=== PATIENT | female | born 1980 | race African-American/Black ===

== ENCOUNTER 2024-10-23 09:38 | Emergency (ER) | payer MEDICAID, OTHER ==
[~2024-10-23] VITALS: Ht 165.1 cm; Wt 73.0 kg
[2024-10-23 10:21] VITALS: PULSE 136; RESP 18; O2SAT 96
[2024-10-23] MEDS: IPRATROPIUM/ALBUTEROL 0.5-3(2.5)MG/3ML NEB HHN NR (10:21)
[2024-10-23] MEDS: LEVETIRACETAM 500MG TABLET PO NR (10:35)
[2024-10-23] MEDS: ACETAMINOPHEN 325MG TABLET PO NR (10:35)
[2024-10-23] MEDS: METHYLPREDNISOLONE SOD SUCC 125MG/2ML (ACT-O-VIAL) IV NR (10:36)
[2024-10-23 10:49] LABS: BASOPHILS % 0.8 % (0.0-2.0); DIFFERENTIAL COMMENT 0; EOSINOPHILS % 1.5 % (0.0-5.0); HEMATOCRIT. 30.2 % (36.0-48.0); HEMOGLOBIN. 9.3 g/dL (12.0-16.0); LYMPHOCYTES % 15.5 % (20.0-50.0); MEAN CORPUSCULAR HEMOGLOBIN 22.9 pg (28.0-32.0); MEAN CORPUSCULAR HGB CONC 30.8 g/dL (31.0-37.0); MEAN CORPUSCULAR VOLUME 74.5 fL (81.0-99.0); MEAN PLATELET VOLUME 8.2 fl (7.4-10.4); MONOCYTES % 4.6 % (2.0-8.0); NEUTROPHILS % 77.6 % (40.0-76.0); PLATELET 298 x1000/uL (130-400); RED BLOOD CELL COUNT 4.05 mill/uL (4.2-5.4); RED CELL DISTRIBUTION WIDTH 19.2 % (11.6-14.6); WHITE BLOOD COUNT 10.7 x1000/uL (4.5-11.0)
[2024-10-23 11:09] LABS: CHLORIDE 105 mEq/L (98-107); POTASSIUM 3.3 mEq/L (3.5-5.1); SODIUM 140 mEq/L (136-145)
[2024-10-23 11:10] LABS: CARBON DIOXIDE 25 mEq/L (21-32)
[2024-10-23 11:11] LABS: CALCIUM 9.3 mg/dL (8.7-10.4)
[2024-10-23 11:15] LABS: CREATININE 0.9 mg/dL (0.6-1.0); GLUCOSE 168 mg/dL (70-105); UREA NITROGEN BLOOD 7 mg/dL (9-23)
[2024-10-23] MEDS: POTASSIUM CHLORIDE 20MEQ TABLET SR PO NR (11:43)
[2024-10-23 11:50] LABS: LACTIC ACID 3.9 mmol/L (0.4-2.0)
[2024-10-23 12:04] LABS: PHOSPHORUS 2.1 mg/dL (2.5-4.9)
[2024-10-23 12:13] LABS: D-DIMER 0.44 mg/L FEU (<0.50); PROTHROMBIN TIME 11.3 sec (9.6-11.0)
[2024-10-23 12:21] LABS: TROPONIN I HIGH SENSITIVITY < 4 ng/L (3.0-34)
[2024-10-23] MEDS: MAGNESIUM 4 G PREMIX 100 ML IV NR (13:53)
[2024-10-23] MEDS: POTASSIUM PHOSPHATE 10 MMOL in DEXT 5% WATER 246.6667 ML IV NR (13:59)
[2024-10-23] MEDS ORDERED: ACETAMINOPHEN 325MG TABLET PO PRN (15:15)
[2024-10-23] MEDS ORDERED: MAGNESIUM/ALUMINUM HYDROXIDE/SIMETHICONE 30ML UDC PO PRN (15:15)
[2024-10-23] MEDS ORDERED: ONDANSETRON HCL 4MG/2ML INJ IV PRN (15:15)
[2024-10-23] MEDS ORDERED: ZOLPIDEM TARTRATE 5MG TABLET PO PRN (15:15)
[2024-10-23] MEDS ORDERED: GUAIFENESIN 200MG/10ML SUGAR FREE UDC PO PRN (15:15)
[2024-10-23] MEDS ORDERED: CLONIDINE 0.1MG TABLET PO PRN (15:15)
[2024-10-23] MEDS ORDERED: IPRATROPIUM/ALBUTEROL 0.5-3(2.5)MG/3ML NEB HHN SCH (16:00)
[2024-10-23] MEDS ORDERED: BUDESONIDE 0.5MG/2ML NEB HHN SCH (16:15)
[2024-10-23] MEDS: ENOXAPARIN 40MG/0.4ML SYR SUBCUT SCH (17:01)
[2024-10-23 18:19] VITALS: BP 117/55; PULSE 122; RESP 18; TEMP 36.89184; O2SAT 100
[2024-10-24] MEDS ORDERED: PREDNISONE 20MG TABLET PO SCH (09:00)
== END 2024-10-23 18:28 | disposition short-term general hospital (02) ==
LOC: ER 09:38 → EDBEDREQ 11:49 → CANBEDREQ 18:22 → ER 18:28
DX: J45.901 Unspecified asthma with (acute) exacerbation (principal); E11.9 Type 2 diabetes mellitus without complications; F31.9 Bipolar disorder, unspecified; Z20.822 Contact with and (suspected) exposure to COVID-19
CPT/HCPCS: 80048; 83605; 83735; 84100; 85025; 85379; 85610; 84484; 87804 ×2; 36415; 84145; 71046; 94640; 96368; 96365; 96372; 96375; 99285; 87426; J1650; J3475; J2919; J3490; Z7610 ×5; J7060

== ENCOUNTER 2025-03-02 10:47 | Emergency (ER) | payer OTHER ==
[~2025-03-02] VITALS: Ht 142.2 cm; Wt 81.6 kg
[2025-03-02 10:54] VITALS: O2SAT 100
[2025-03-02 12:05] LABS: BASOPHILS % 1.2 % (0.0-2.0); DIFFERENTIAL COMMENT 0; EOSINOPHILS % 2.2 % (0.0-5.0); HEMATOCRIT. 31.1 % (36.0-48.0); HEMOGLOBIN. 9.6 g/dL (12.0-16.0); LYMPHOCYTES % 35.1 % (20.0-50.0); MEAN CORPUSCULAR HEMOGLOBIN 22.7 pg (28.0-32.0); MEAN CORPUSCULAR HGB CONC 30.9 g/dL (31.0-37.0); MEAN CORPUSCULAR VOLUME 73.4 fL (81.0-99.0); MEAN PLATELET VOLUME 7.3 fl (7.4-10.4); MONOCYTES % 8.6 % (2.0-8.0); NEUTROPHILS % 52.9 % (40.0-76.0); PLATELET 393 x1000/uL (130-400); RED BLOOD CELL COUNT 4.23 mill/uL (4.2-5.4); RED CELL DISTRIBUTION WIDTH 20.6 % (11.6-14.6); WHITE BLOOD COUNT 9.1 x1000/uL (4.5-11.0)
[2025-03-02 12:26] LABS: CHLORIDE 105 mEq/L (98-107); SODIUM 139 mEq/L (136-145)
[2025-03-02 12:27] LABS: CALCIUM 9.8 mg/dL (8.7-10.4); CARBON DIOXIDE 24 mEq/L (21-32)
[2025-03-02 12:32] LABS: CREATININE 0.8 mg/dL (0.6-1.0); GLUCOSE 98 mg/dL (70-105); UREA NITROGEN BLOOD < 5 mg/dL (9-23)
[2025-03-02 12:33] LABS: ALANINE AMINOTRANSFERASE 26 IU/L (10-49); ASPARTATE AMINOTRANSFERASE 23 IU/L (<34)
[2025-03-02 12:34] LABS: ALBUMIN 4.6 g/dL (3.2-4.8); BILIRUBIN TOTAL 0.5 mg/dL (0.1-1.0); PROTEIN TOTAL 8.2 g/dL (6.0-8.3)
[2025-03-02] MEDS: METOCLOPRAMIDE HCL 10MG TABLET PO ONE (14:04)
[2025-03-02] MEDS: DIPHENHYDRAMINE 25MG CAPSULE PO ONE (14:04)
[2025-03-02] MEDS ORDERED: AMIT100T2 MT (15:01)
[2025-03-02] MEDS ORDERED: SITA25TA3 MT (15:01)
[2025-03-02] MEDS ORDERED: EMPA25TA MT (15:01)
[2025-03-02] MEDS ORDERED: SITA100T11 MT (15:02)
[2025-03-02 15:05] VITALS: BP 118/65; PULSE 95; RESP 16; TEMP 36.7; O2SAT 99
== END 2025-03-02 15:06 | disposition home or self-care (01) ==
LOC: ER 12:42
DX: R56.9 Unspecified convulsions (principal); G43.909 Migraine, unspecified, not intractable, without status migrainosus; E11.9 Type 2 diabetes mellitus without complications; J45.909 Unspecified asthma, uncomplicated; Z79.899 Other long term (current) drug therapy; Z90.49 Acquired absence of other specified parts of digestive tract; Z79.84 Long term (current) use of oral hypoglycemic drugs
CPT/HCPCS: 99283; 80053; 85025; 36415; Q0163; J8597

== ENCOUNTER 2025-10-02 16:04 | Emergency (ER) | payer OTHER ==
[~2025-10-02] VITALS: Ht 160 cm; Wt 95.0 kg
[~2025-10-02 16:04] MED LIST: AMIT100T2 MT; EMPA25TA MT; SITA100T11 MT
[2025-10-02] MEDS ORDERED: DEXAMETHASONE 1 MG/ML ORAL SYR PO ONE (17:30)
[2025-10-02] MEDS: DEXAMETHASONE 10 MG/ML VIAL PO NR (17:54)
[2025-10-02 17:58] VITALS: PULSE 103; RESP 20; O2SAT 96
[2025-10-02] MEDS: ALBUTEROL (0.083%) 2.5MG/3ML NEB HHN SCH (17:58)
[2025-10-02] MEDS: IPRATROPIUM BROMIDE (0.02%) 0.5MG/2.5ML NEB HHN SCH (17:59)
[2025-10-02 18:25] VITALS: PULSE 116; RESP 18; O2SAT 99
[2025-10-02 18:50] VITALS: PULSE 123; RESP 18; O2SAT 96
[2025-10-02 19:45] LABS: BASOPHILS % 0.8 % (0.0-2.0); EOSINOPHILS % 6.2 % (0.0-5.0); HEMATOCRIT. 33.5 % (36.0-48.0); HEMOGLOBIN. 10.4 g/dL (12.0-16.0); LYMPHOCYTES % 23.4 % (20.0-50.0); MEAN PLATELET VOLUME 7.6 fl (7.4-10.4); MONOCYTES % 5.5 % (2.0-8.0); NEUTROPHILS % 64.1 % (40.0-76.0); PLATELET 330 x1000/uL (130-400); RED BLOOD CELL COUNT 4.21 mill/uL (4.2-5.4); RED CELL DISTRIBUTION WIDTH 18.4 % (11.6-14.6)
[2025-10-02 19:55] LABS: CREATININE 0.8 mg/dL (0.6-1.0); TROPONIN I HIGH SENSITIVITY < 4 ng/L (3.0-34); UREA NITROGEN BLOOD 7 mg/dL (9-23)
[2025-10-02 19:57] LABS: ASPARTATE AMINOTRANSFERASE 26 IU/L (<34)
[2025-10-02 19:58] LABS: BILIRUBIN DIRECT < 0.1 mg/dL (<=3.0); BILIRUBIN TOTAL 0.4 mg/dL (0.1-1.0); PROTEIN TOTAL 8.1 g/dL (6.0-8.3)
[2025-10-02] MEDS: LEVETIRACETAM 500MG PREMIX 100 ML IV ONE (20:06)
[2025-10-02] MEDS ORDERED: LEVE750T83 MT (21:04)
[2025-10-02] MEDS: SODIUM CHLORIDE 0.9% 1,000 ML IV ONE (22:06)
[2025-10-02] MEDS: DIPHENHYDRAMINE 50MG/ML VIAL IV ONE (22:06)
[2025-10-02] MEDS: KETOROLAC 30MG/ML VIAL IV ONE (22:06)
[2025-10-02] MEDS: PROCHLORPERAZINE 10MG/2ML VIAL IV ONE (22:14)
[2025-10-02] MEDS: ACETAMINOPHEN 1000MG/100ML 100 ML IV ONE (23:27)
[2025-10-02] MEDS ORDERED: ACET-2708 MT (23:33)
[2025-10-02] MEDS ORDERED: IBUP-1455 MT (23:33)
[2025-10-02] MEDS ORDERED: P20 MT (23:41)
[2025-10-03 00:14] VITALS: BP 116/52; PULSE 107; RESP 13; TEMP 36.7; O2SAT 96
[2025-10-07] MEDS ORDERED: P20 MT (15:43)
[2025-10-07] MEDS ORDERED: FLUT1DIS3 INH (15:44)
[2025-10-07] MEDS ORDERED: ALBU18HF2 IH (15:44)
[2025-10-07] MEDS ORDERED: IPRA3AMP9 NEB (16:08)
== END 2025-10-03 00:31 | disposition home or self-care (01) ==
LOC: ER 16:04
DX: J45.901 Unspecified asthma with (acute) exacerbation (principal); G40.909 Epilepsy, unspecified, not intractable, without status epilepticus; R07.9 Chest pain, unspecified; E11.9 Type 2 diabetes mellitus without complications; F31.9 Bipolar disorder, unspecified; Z79.899 Other long term (current) drug therapy; Z90.49 Acquired absence of other specified parts of digestive tract
CPT/HCPCS: 80076; 80048; 82962; 85025; 84484; 36415; 71045; 94640; 93005; 96367; 96365; 96375; 99285; J1953; J1100; J1200; J1885; J0780; Z7610 ×4; J7030; 94070; 94664; J8540; J0131

== ENCOUNTER 2025-11-10 05:37 | Inpatient (IN) | payer OTHER ==
[~2025-11-10] VITALS: Ht 142.2 cm; Wt 78.5 kg
[~2025-11-10 05:37] MED LIST changes: +ACET-2708 MT; +ALBU18HF2 IH; +FLUT1DIS3 INH; +IBUP-1455 MT; +IPRA3AMP9 NEB; +LEVE750T83 MT; +P20 MT
[2025-11-10 06:45] LABS: BASOPHILS % 1.1 % (0.0-2.0); EOSINOPHILS % 3.2 % (0.0-5.0); HEMATOCRIT. 34.0 % (36.0-48.0); HEMOGLOBIN. 10.7 g/dL (12.0-16.0); LYMPHOCYTES % 27.3 % (20.0-50.0); MEAN PLATELET VOLUME 7.9 fl (7.4-10.4); MONOCYTES % 9.6 % (2.0-8.0); NEUTROPHILS % 58.8 % (40.0-76.0); PLATELET 341 x1000/uL (130-400); RED BLOOD CELL COUNT 4.28 mill/uL (4.2-5.4); RED CELL DISTRIBUTION WIDTH 18.8 % (11.6-14.6)
[2025-11-10 06:52] LABS: CREATININE 0.9 mg/dL (0.6-1.0); ETHANOL BLOOD < 10 mg/dL (<10); PROTEIN TOTAL 7.7 g/dL (6.0-8.3); UREA NITROGEN BLOOD < 5 mg/dL (9-23)
[2025-11-10 06:53] LABS: ASPARTATE AMINOTRANSFERASE 25 IU/L (<34)
[2025-11-10 06:54] LABS: BILIRUBIN DIRECT < 0.1 mg/dL (<=3.0); BILIRUBIN TOTAL 0.3 mg/dL (0.1-1.0)
[2025-11-10] MEDS: LIDOCAINE 5% PATCH TOP ONE (07:04)
[2025-11-10 07:10] LABS: HCG SCREEN NEGATIVE
[2025-11-10] MEDS: KETOROLAC 15MG/ML VIAL IM ONE (07:42)
[2025-11-10] MEDS: ACETAMINOPHEN 325MG TABLET PO ONE (07:42)
[2025-11-10 08:04] LABS: CLARITY URINE CLEAR (CLEAR); COLOR URINE YELLOW (YELLOW); GLUCOSE URINE 3+ (NEGATIVE); KETONES URINE NEGATIVE (NEGATIVE); LEUKOCYTE ESTERASE URINE NEGATIVE (NEGATIVE); NITRITE URINE NEGATIVE (NEGATIVE); OCCULT BLOOD URINE NEGATIVE (NEGATIVE); PH URINE 7.5 (4.5-8.0); PROTEIN URINE NEGATIVE (NEGATIVE); SPECIFIC GRAVITY URINE 1.031 (1.005-1.030); UROBILINOGEN URINE 0.2 E.U./dL (0.2-1.0)
[2025-11-10] MEDS ORDERED: LEVETIRACETAM 0 MG in SODIUM CHLORIDE 0.9% 100 ML IV ONE (08:15)
[2025-11-10] MEDS: LORAZEPAM 2MG/ML UD SYRINGE IV SCH (08:38)
[2025-11-10 08:46] LABS: BACTERIA URINE TRACE; RBC URINE 0-2 /hpf (0-2); SQUAMOUS EPITHELIAL CELL URINE 3+ /lpf (RARE/1+); WBC URINE 0-2 /hpf (0-2); YEAST URINE NONE SEEN
[2025-11-10] MEDS ORDERED: LEVETIRACETAM 4,500 MG in SODIUM CHLORIDE 0.9% 100 ML IV NR (09:00)
[2025-11-10 09:11] LABS: *AMPHETAMINES SCREEN URINE NEGATIVE (NEGATIVE); *BARBITURATES SCREEN URINE NEGATIVE (NEGATIVE); *BENZODIAZEPINES SCREEN URINE NEGATIVE (NEGATIVE); *COCAINE SCREEN URINE NEGATIVE (NEGATIVE); CANNABINOID URINE SCREEN PRESUMPTIVE POSITIVE (NEGATIVE); ECSTASY MDMA SCREEN URINE NEGATIVE (NEGATIVE); METHADONE URINE SCREEN NEGATIVE (NEGATIVE); OPIATES URINE SCREEN NEGATIVE (NEGATIVE); PHENCYCLIDINE URINE SCREEN NEGATIVE (NEGATIVE)
[2025-11-10 15:57] VITALS: BP 114/61; PULSE 95; RESP 18; TEMP 36.6; O2SAT 97
[2025-11-10 16:02] VITALS: BP 114/62; PULSE 95; RESP 18; TEMP 36.6404
[2025-11-10] MEDS ORDERED: ONDANSETRON HCL 4MG/2ML INJ IV PRN (16:15)
[2025-11-10] MEDS: ACETAMINOPHEN 325MG TABLET PO PRN (19:39)
[2025-11-10] MEDS: KETOROLAC 30MG/ML VIAL IV PRN (19:44)
[2025-11-10 20:00] VITALS: BP 95/50; PULSE 99; RESP 18; TEMP 36.4; O2SAT 100
[2025-11-10] MEDS: LEVETIRACETAM 500MG TABLET PO SCH (20:06)
[2025-11-11] VITALS (7 sets, daily range): BP systolic 98–134; BP diastolic 45–71; PULSE 87–116; RESP 18–19; TEMP 35.9–36.7; O2SAT 94–98
[2025-11-11] MEDS: IPRATROPIUM/ALBUTEROL 0.5-3(2.5)MG/3ML NEB HHN PRN (00:54)
[2025-11-11] MEDS: DIPHENHYDRAMINE 50MG CAPSULE PO PRN (22:02)
[2025-11-11] MEDS: ENOXAPARIN 30MG/0.3ML SYR SUBCUT SCH (22:04)
[2025-11-12] VITALS (9 sets, daily range): BP systolic 98–136; BP diastolic 50–72; PULSE 81–108; RESP 17–20; TEMP 36.3–36.5; O2SAT 95–99
[2025-11-13] VITALS: BP 96/59; PULSE 91; RESP 18; TEMP 36.5; O2SAT 99
[2025-11-13 04:00] VITALS: BP 97/40; PULSE 85; RESP 17; TEMP 36.5; O2SAT 99
[2025-11-13 08:00] VITALS: BP 108/72; PULSE 78; RESP 18; TEMP 36.5; O2SAT 96
[2025-11-13] MEDS: MECLIZINE 12.5MG TABLET PO PRN (09:09)
[2025-11-13 12:00] VITALS: BP 111/58; PULSE 81; RESP 18; TEMP 36.7; O2SAT 97
[2025-11-13 16:00] VITALS: BP 111/44; PULSE 100; RESP 18; TEMP 36.7; O2SAT 100
[2025-11-13 20:00] VITALS: BP 101/54; PULSE 85; RESP 16; TEMP 35.9; O2SAT 100
[2025-11-13] MEDS: FAMOTIDINE 20MG TABLET PO SCH (20:59)
[2025-11-14] VITALS: BP 109/57; PULSE 85; RESP 16; TEMP 36.4; O2SAT 99
[2025-11-14 04:00] VITALS: BP 111/56; PULSE 85; RESP 18; TEMP 35.9; O2SAT 100
[2025-11-14 05:04] VITALS: PULSE 75; RESP 20; O2SAT 95
[2025-11-14 08:00] VITALS: BP 101/49; PULSE 90; RESP 16; TEMP 37.1; O2SAT 100
[2025-11-14 08:39] LABS: BASOPHILS % 0.9 % (0.0-2.0); EOSINOPHILS % 3.0 % (0.0-5.0); HEMATOCRIT. 33.7 % (36.0-48.0); HEMOGLOBIN. 10.7 g/dL (12.0-16.0); LYMPHOCYTES % 42.0 % (20.0-50.0); MEAN PLATELET VOLUME 8.6 fl (7.4-10.4); MONOCYTES % 8.8 % (2.0-8.0); NEUTROPHILS % 45.3 % (40.0-76.0); PLATELET 291 x1000/uL (130-400); RED BLOOD CELL COUNT 4.27 mill/uL (4.2-5.4); RED CELL DISTRIBUTION WIDTH 18.9 % (11.6-14.6)
[2025-11-14 10:39] VITALS: BP 101/49; PULSE 92; TEMP 98.7
== END 2025-11-14 11:30 | disposition home or self-care (01) | DRG 113 ==
LOC: ER 05:37 → 8WST 08:17 → EDBEDREQTM 08:31 → EDBEDREQ 08:31
PROVIDERS: ADMIT Internal Medicine; ATTEND Internal Medicine
DX: J06.9 Acute upper respiratory infection, unspecified (principal); D64.9 Anemia, unspecified; E66.9 Obesity, unspecified; E11.9 Type 2 diabetes mellitus without complications; F12.90 Cannabis use, unspecified, uncomplicated; G40.909 Epilepsy, unspecified, not intractable, without status epilepticus; J45.909 Unspecified asthma, uncomplicated; M48.061 Spinal stenosis, lumbar region without neurogenic claudication; M47.816 Spondylosis without myelopathy or radiculopathy, lumbar region; Z79.84 Long term (current) use of oral hypoglycemic drugs; Z79.899 Other long term (current) drug therapy; Z91.81 History of falling; Z68.38 Body mass index [BMI] 38.0-38.9, adult; Z71.3 Dietary counseling and surveillance
CPT/HCPCS: 36415; 72131; 80048; 80076; 80305; 80320; 81003; 82542; 84703; 85025; 93005; 94070; 94640; 94664; 96372; 99291; A4615; J1650; J1885; J1953; J2060; J7050; J8597; Q0163; G0480